=== PATIENT | female | born 1950 | race Caucasian/White ===

== ENCOUNTER 2023-09-24 19:16 | Inpatient (IN) | payer MEDICARE, SELFPAY ==
[2023-09-24] VITALS (20 sets, daily range): BP systolic 109–148; BP diastolic 71–114; BMI 40.6; BMI 39.9
[2023-09-24 16:06] LABS: % Basophils 0.4 % (0-2); % Immature Granulocytes 0.9 % (0-0.5); % Lymphocytes 6.3 % (20.5-51.1); % Monocytes 6.6 % (1.7-9.3); % Neutrophils 85.8 % (42.2-75.2); Absolute Basophils 0.1 10^3/uL (0-0.2); Absolute Immature Granulocytes 0.1 10^3/uL (0-0.05); Hematocrit 46.4 % (37.0-47.0); Mean Corp Hgb Conc. 34.5 g/dL (33.0-37.0); Mean Corpuscular Hgb 32.1 pg (27.0-31.0); Mean Platelet Volume 10.1 fL (7.4-10.4); Nucleated Red Blood Cells % 0 %; Platelet Count 316 10^3/uL (130-400); Red Blood Cell Count 4.99 10^6/uL (4.20-5.40); Red Cell Dist. Width 14.7 % (11.5-14.5); White Blood Cell Count 15.1 10^3/uL (4.8-10.8)
--- NOTE | 2023-09-24 16:10 | ED.GENMED ---
History of Present Illness
General
Chief Complaint: Breathing Problem
Source: patient
Exam Limitations: none
Time Seen by Provider: 09/24/23 16:09
Nursing documentation reviewed up to this point in time: agreed with
Travel History
Have you had any contact with someone who has COVID-19?: No
Do you have any symptoms of coronavirus? Fever > 100 degrees, chills, cough, shortness of breath, sore throat, loss of taste or smell, muscle aches, or headache?: No
History of Present Illness
History of Present Illness:
73-year-old female with history of COPD, A-fib on Eliquis, HTN, CHF, anxiety/depression presents stating last night she became suddenly short of breath. Sometime during the night when she got out of bed to go the bathroom she had shortness of
breath, wheezing, was sweating and felt lightheaded. She denies chest pain.
She is adamant about and does not want cardioversion. She states because she has had 3 cardioversions
She was on dofetilide 100 mg twice daily since June, she converted to NSR and last week her egg breaker Dr. Tripp at [facility] decreased her dofetilide to 50 mg twice daily. She has a follow-up appointment in 3 days with her egg breaker.
Past History
Past History
ED Past Medical History: Arrthythmia (A-fib on Eliquis), COPD, HTN and Psychiatric (Anxiety/depression)
ED Past Surgical History: Cardiac (Cardiac cath 10/27/2022 borderline LV wall motion with visually estimated EF 45 to 50%. Mild pulmonary hypertension)
Social History
Tobacco: Former smoker
Alcohol: None
Personal: Single
Living: alone
Review of Systems
Review of Systems
Allergies reviewed?: Yes
All Other Systems: ROS reviewed and negative except as documented in HPI and ROS
Constitutional: Reports fatigue; Denies fever
Respiratory: Reports trouble breathing; Denies cough
Cardiac: Denies chest pain
ABD/GI: Denies abdominal pain, nausea, vomiting or diarrhea
: Denies dysuria or difficulty voiding
Musculoskeletal: Reports other (Chronic pain post fracture distal left fibula 10/08/2022); Denies edema
Skin: Reports no symptoms
Neurological: Reports no symptoms
Phy Exam
Physical Exam
Physical Exam:
GENERAL: No acute distress. A&Ox3.
CONSTITUTIONAL: Afebrile.
EYES: PERRL, conjunctivae normal
Neck: Supple
ENMT: moist mucus membranes, Pharynx nl
RESPIRATORY: Regular respirations, nonlabored, lungs with scattered expiratory wheezes.
CARDIOVASCULAR: Regular rate and rhythm, no murmurs, no rubs.
GI: Soft, nontender, normal BS
MUSCULOSKELETAL: Moves with ease. Well perfused.
SKIN: Warm, dry, pink
PSYCH: Normal mood and affect. Well kept, interactive and appropriate
NEUROLOGIC: Awake, alert and oriented. No focal neurological deficits
Scores
Heart Failure Risk
Heart Failure Risk Score: Yes
History of Stroke or TIA: No
History of intubation for respiratory distress: No
Heart rate on ED arrival >/= 110: Yes
SaO2 <90% on arrival on room air: No
HR >/=110 during 3min walk test (or too ill to perform test): Yes
ECG has acute ischemic changes: No
Urea >/=12mmol/L (BUN 33.6mg/dL): No
Serum CO2>/=35mmol/L: No
Troponin I or T elevated to ND Level (0.4mg/dL): No
NT-proBNP >/=5,000ng/L (5,000pg/ml): No
HF Risk Score: 2
Admission Status: MEDIUM RISK 9.2% Consider observation or discharge to home with homecare & f/u visit to PCP/Workers Compensation Claims Specialist, or SNF for treatment
Course
Orders/Labs/Results
Orders:
Orders
09/24/23 Dinner
Cholesterol Lowering
Cholesterol Lowering: Sodium, 2 Gram
09/24/23 15:12
EKG [Electrocardiogram (*1)] Urgent
Reason for Study: Shortness of Breath
EKG- Treatment ONCE
09/24/23 15:39
Cardiac Monitoring- Treatment ONCE
IV Insert/Care/Rem.- Treatment PRN
09/24/23 15:52
Pro-BNP [NT-proBNP] Urgent
Troponin I Urgent
09/24/23 15:56
Complete Blood Count/With Diff Urgent
Comprehensive Metabolic Panel Urgent
09/24/23 16:11
COVID-19 Antigen Urgent
Source: Nasal Swab
Influenza A+B Rapid Molecular Urgent
JOSE Source: Nasal Swab
Specimen Description:
09/24/23 16:12
0.9% Sodium Chloride 1000 ml [Nss] 1,000 ml IV BOLUS
09/24/23 16:27
Diltiazem 125 mg/125 ml Nss [Cardizem] 125 mg in 125 ml .ROUTE .STK-MED
Diltiazem HCl [Cardizem] 25 mg .ROUTE .STK-MED ONE
Ipratropium/Albuterol Sulfate [Duoneb] 3 ml .ROUTE .STK-MED ONE
09/24/23 16:28
Ipratropium/Albuterol Sulfate [Duoneb] 3 ml INH R NOW ONE
09/24/23 16:29
Diltiazem 125 mg/125 ml Nss [Cardizem] 125 mg in 125 ml IV NOW
Initial dose in mg/hr, then titrate:: 5
Titrate to keep:: Heart rate 80-100 bpm
Titrate by mg/hr:: 5 mg/hr
Frequency of titrations (minutes):: 15
Maximum dose in mg/hr:: 15
Diltiazem HCl [Cardizem] 10 mg IV NOW STA
Diltiazem HCl [Cardizem] 10 mg IV NOW STA
Ipratropium/Albuterol Sulfate [Duoneb] 3 ml INH R NOW ONE
09/24/23 17:11
Diltiazem HCl [Cardizem] 10 mg IV NOW STA
09/24/23 17:12
Acetaminophen [Tylenol] 1,000 mg PO NOW STA
09/24/23 17:13
CR Chest - 2 Views Urgent
Comment:
Reason For Exam: SOB, WHEEZING
09/24/23 17:55
Admit/Transfer Patient As Directed
Co-Sign Provider:
Level of Care: Inpatient admission
Assign to:: IVU
Physician / Group: Hospitalist
Diagnosis: Rapid Afib, SOB
Reason for Hospitalization: Rapid Afib, SOB
Expected length of stay greater than two midnights?: Yes
ELOS- Estimated Length of Stay in days: 2
I certify the patient meets the requirements for IP care: Yes
09/24/23 17:57
Code Status As Directed
Resuscitation Status: Limited DNR
Limited DNR: -No intubation
09/24/23 20:32
Troponin I Q6H
Acetaminophen [Tylenol] 650 mg PO QIDPRN PRN
Apixaban [Eliquis] 5 mg PO BID
Clonazepam [Klonopin] 1 mg PO BID
Diltiazem 125 mg/125 ml Nss [Cardizem] 125 mg in 125 ml IV PER PROTOCOL
Initial dose in mg/hr, then titrate:: 5
Titrate to keep:: Heart rate 80-100 bpm
Titrate by mg/hr:: 5 mg/hr
Frequency of titrations (minutes):: 15
Maximum dose in mg/hr:: 15
Dofetilide [Tikosyn] 250 mcg PO BID
Doxycycline [Vibramycin] 100 mg PO Q12
Levalbuterol [Xopenex 1.25 mg Inhalant Solution] 1.25 mg INH R Q6HPRN PRN
Montelukast Sodium [Singulair] 10 mg PO QPM
09/24/23 20:32
Respiratory Culture/Gram Stain Routine
JOSE Source: Sputum
Specimen Description:
Activity As Directed
Activity Level: Bedrest for limited time
Bedrest duration in hours then activity as indicated above:: 24
Old Records Request [Obtain Records] As Directed
Dates of Information to be Released: last
Type of Information Requested: Last Office Visit H&P
ECG/Cardiology Results
Comment: Derek Jensen
Vital Signs As Directed
Frequency: Per unit guidelines
Xopenex Reason for Use As Directed
Reason for ordering Xopenex instead of Albuterol: tachy
O2 Therapy [RESP] Routine
Titrate/Wean O2 to maintain O2 sat greater than (%): 92
09/24/23 22:00
Dexamethasone Sod Phosphate [Decadron] 4 mg IV Q8H
Temazepam [Restoril] 30 mg PO HS
09/25/23 02:32
Troponin I Q6H
09/25/23 06:00
Basic Metabolic Panel IN AM
Complete Blood Count/No Diff IN AM
Magnesium IN AM
TSH IN AM
Vitamin B12 IN AM
OT Consult [Ot Eval And Treat] IN AM
PT Consult [Pt Eval And Treat] IN AM
Activity Level: Encourage Progressive Amb
09/25/23 08:00
Ascorbic Acid [Vitamin C] 500 mg PO DAILY
Budesonide/Formoterol 160/4.5 [Symbicort 160/4.5 Mcg Inhaler] 2 puff INH R BID
Calcium Carbonate [Oscal Fabián 500] 500 mg PO DAILY
Cholecalciferol (Vitamin D3) [VITAMIN D3 (cholecalciferol)] 25 mcg PO DAILY
Multivitamin [Theragran] 1 tablet PO DAILY
Pantoprazole [Protonix] 40 mg PO DAILY
Tiotropium Gunpowder 2.5 Mcg [Spiriva Respimat 2.5 Mcg] 2 puff INH R DAILY
Venlafaxine Extended Release [Effexor Xr] 150 mg PO DAILY
Vit C/Vit E/Lutein/Min/[place]mage-3 [Ocuvite Softgel] 1 cap PO DAILY
09/25/23 08:32
Troponin I Q6H
Abnormal Lab Results
09/24/23
15:56
WBC 15.1 H 10^3/uL
(4.8-10.8)
MCH 32.1 H pg
(27.0-31.0)
RDW 14.7 H %
(11.5-14.5)
Abs Immat Gran (auto) 0.1 H 10^3/uL
(0-0.05)
Absolute Neuts (auto) 13.0 H 10^3/uL
(1.4-6.5)
Absolute Lymphs (auto) 1.0 L 10^3/uL
(1.2-3.4)
Absolute Monos (auto) 1.0 H 10^3/uL
(0.1-0.6)
Immature Gran % 0.9 H %
(0-0.5)
Neutrophils % 85.8 H %
(42.2-75.2)
Lymphocytes % 6.3 L %
(20.5-51.1)
Glucose 103 H mg/dl
(70-99)
09/24/23 15:56
09/24/23 15:56
Vital Signs
Initial and Last Documented VS:
Initial Vital Signs
Temp Pulse Resp BP Pulse Ox
99.4 F 106 28 128/92 89
09/24/23 15:01 09/24/23 15:01 09/24/23 15:01 09/24/23 15:01 09/24/23 15:01
Last Documented Vital Signs
Temp Pulse Resp BP Pulse Ox
97.4 F 148 22 129/112 96
09/24/23 20:07 09/24/23 20:00 09/24/23 20:07 09/24/23 19:53 09/24/23 20:07
MDM/Problems Addressed
Differential Diagnosis Includes:
Exacerbation COPD, CHF, ND
MDM/Problems Addressed:
73-year-old female with history of COPD, A-fib on Eliquis, HTN, CHF, anxiety/depression presents stating last night she became suddenly short of breath. Sometime during the night when she got out of bed to go the bathroom she had shortness of
breath, wheezing, was sweating and felt lightheaded. She denies chest pain.
She is adamant about and does not want cardioversion. She states because she has had 3 cardioversions
She was on dofetilide 100 mg twice daily since June, she converted to NSR and last week her egg breaker Dr. Tripp at [facility] decreased her dofetilide to 50 mg twice daily. She has a follow-up appointment in 3 days with her egg breaker.
On Eliquis, doubt PE
Afebrile
EKG: A-fib with RVR
Patient is NOT want to be defibrillated. She is okay with Cardizem drip.
09/24/2023 1632 PM
Negative flu
CBC: WBC 15.1
CMP: Normal
Troponin: Normal
09/24/2023 1716 PM
Patient heart rate still in the 140s, Cardizem 10 mg bolus repeated, is on Cardizem drip
Continues to refuse cardioversion. BP stable
Hospitalist notified of admission
BNP:pending
CXR pending
Chronic conditions affecting care: HTN, Arrhythmia (A-fib on Eliquis) and Other (Chronic pulmonary hypertension)
*EKG
EKG Intrepretation Date: 09/24/23
Interpretation: abnormal
Rate: tachycardiac
Rhythm: a-fib
[place]: normal axis
QRS Pattern: normal QRS
Ischemia: ST depression
*Critical Care Note
Total Time (30-74mins, 75-104mins- exclusive of procedures): Not Applicable
ED Attending Note
-
Portions of this chart may have been created with voice recognition software.� Occasional wrong word or��sound alike� substitutions may have occurred due to the inherent limitations of voice recognition software.
Discharge Plan
Departure
Patient Disposition: Admit
Date of Disposition: 09/24/23
Time of Disposition: 17:11
Admit to: IMU
Presentation/result/management discussed w/ accepting MD/DO: Hospitalist
Condition: Fair
Discharge Problem:
Atrial fibrillation with RVR
Interventions
Interventions:
*Risk Screen - Suicide Last Done: 09/24/23 16:02
*General Assessment Last Done: 09/24/23 16:02
*Neglect/Abuse Screening Last Done: 09/24/23 16:02
ED- Fall Risk Assessment Last Done: 09/24/23 16:02
*ED COVID-19 Vaccine History Last Done: 09/24/23 16:02
*Nursing Disposition Last Done: 09/24/23 19:52
ED- Cardiac Assessment Last Done: 09/24/23 16:42
ED- Pulmonary Assessment Last Done: 09/24/23 16:42
Discharge Date and Time
Discharge Date/Time: 09/24/23 19:52
[2023-09-24 16:19] LABS: ALT (SGPT) 22 U/L (0-35); AST (SGOT) 23 U/L (14-36); Albumin 4.3 g/dl (3.5-5.0); Alkaline Phosphatase 115 U/L (38-126); Blood Urea Nitrogen 17 mg/dl (7-17); Calcium 9.5 mg/dl (8.4-10.2); Carbon Dioxide 23 mmol/L (22-30); Chloride 105 mmol/L (98-107); Estimated Creatinine Clearance 95 ml/min; Glucose 103 mg/dl (70-99); Potassium 3.8 mmol/L (3.5-5.1); Sodium 138 mmol/L (135-145); Total Bilirubin 0.7 mg/dl (0.2-1.3); Total Protein 7.3 g/dl (6.3-8.2); eGFR > 60.00
[2023-09-24] MEDS: CARDIZEM 10 MG IV ×2 (16:29→17:16)
[2023-09-24] MEDS: DUONEB 3 ML INH (16:29)
[2023-09-24] MEDS: CARDIZEM 125 IV ×2 (16:32→22:58)
[2023-09-24 16:34] LABS: COVID-19 Antigen Negative (Negative)
[2023-09-24 16:58] LABS: Troponin I 0.012 ng/ml
[2023-09-24 17:16] LABS: NT-proBNP 596 pg/ml
[2023-09-24] MEDS: TYLENOL 1000 MG PO (17:16)
--- NOTE | 2023-09-24 17:28 | HPS.HSE ---
Family Physician
-
Family Physician: EUSEBIA Machuca
Chief Complaint
-
Shortness of breath
History of Present Illness
73-year-old female became short of breath suddenly she also felt lightheadedness. Patient has a history of A-fib and has had 3 cardioversions in the past. She was on dofetilide 500 mcg twice daily since June converted to sinus rhythm. Saw
Isaias Grayson at [facility] who decreased her dofetilide to 250 mcg twice daily and has a follow-up coming up in 3 days. Patient stated that she recently had a fall 2 days ago and saw orthopedics Dr. Hal Mendez at [facility]. And did not have any further
recommendations. She felt short of breath last night and a friend made her come to the hospital. Instead of going to [facility] they brought her to [facility].
Medical History
Past Medical History
Past Medical History: Reports Other
Additional Past Medical History:
, Impaired vision and left eye, anxiety and depression ,atrial fibrillation, asthma, COPD, hypertension, arthritis
Past Surgical History: Reports Other
Additional Past Surgical History:
Left tibial fracture surgery
Social History
Tobacco: Former Smoker
Alcohol: None
Drug: None
Personal: Single
Living: Alone
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
Family History
Family History: CAD (Mother)
Allergies / Home Medications
Allergies reflects when Allergies were last updated in [facility].
Home Medications with original date entered in [facility]
Allergy/Medication List:
Allergies
Allergy/AdvReac Type Severity Reaction Status Date / Time
No Known Allergies Allergy Verified 09/24/23 15:08
Home Medications
apixaban 5 mg tablet (Eliquis) 5 mg PO BID 10/27/22
clonazepam 1 mg tablet 1 mg PO BID 10/27/22
diltiazem HCl 120 mg capsule,extended release 24 hr 120 mg PO BID 10/27/22
fluticasone furoate 200 mcg-vilanterol 25 mcg/dose inhalation powder (Breo Ellipta) 1 inh inhalation R DAILY 10/27/22
montelukast 10 mg tablet 10 mg PO QPM 10/27/22
pantoprazole 40 mg tablet,delayed release 40 mg PO DAILY 10/27/22
umeclidinium 62.5 mcg/actuation blister powder for inhalation (Incruse Ellipta) 1 inh inhalation R DAILY 10/27/22
venlafaxine 150 mg capsule,extended release 24 hr 150 mg PO DAILY 10/27/22
acetaminophen 325 mg tablet (Tylenol) 650 mg PO QIDPRN PRN mild pain 09/24/23
ascorbic acid (vitamin C) 500 mg tablet (Vitamin C) 500 mg PO DAILY 09/24/23
calcium carbonate 500 mg calcium (1,250 mg) tablet 500 mg PO DAILY 09/24/23
cholecalciferol (vitamin D3) 25 mcg (1,000 unit) tablet (Vitamin D3) 25 mcg PO DAILY 09/24/23
dofetilide 250 mcg capsule 250 mcg PO BID 09/24/23
temazepam 30 mg capsule 30 mg PO HS 09/24/23
therapeutic multivitamin 1 tab PO DAILY 09/24/23
vitamin E 268 mg (400 unit) capsule 268 mg PO DAILY 09/24/23
vitamins A,C,O-crcx-lxeqju 2,148 mcg-113 mg-45 mg-17.4 mg tablet (PreserVision AREDS) 1 tab PO DAILY 09/24/23
Review of Systems
-
A 12 point ROS was completed and negative except as noted: Yes
Respiratory: Reports Trouble Breathing
Cardiac: Reports Chest Pain (Once last night)
Musculoskeletal: Reports Joint Pain (Left knee after the fall )
Physical Exam
Vital Signs
Vital Signs
Temp Pulse Resp BP Pulse Ox
99.4 F 142 24 121/71 98
09/24/23 15:01 09/24/23 17:01 09/24/23 17:01 09/24/23 17:01 09/24/23 17:00
Physical Exam
General: Conversant and Respiratory Distress (Mild)
Respiratory: Rales and Rhonchi
Cardiac: S1/S2, Irregular Rhythm and Tachycardia
GI: Soft, Non Tender and Normal Bowel Sounds
Neuro: AO x 3 and Nonfocal/grossly intact
Psych: Intact Judgment/Insight
Laboratory Results
-
09/24/23 15:56
09/24/23 15:56
Laboratory Results
Total Bilirubin 0.7 mg/dl (0.2-1.3) 09/24/23 15:56
AST 23 U/L (14-36) 09/24/23 15:56
ALT 22 U/L (0-35) 09/24/23 15:56
Alkaline Phosphatase 115 U/L (38-126) 09/24/23 15:56
Troponin I 0.012 ng/ml 09/24/23 15:52
Data Reviewed
-
Medical Tests (Nuc Med, Echo, EKG etc): Image Personally Visualized and interpreted (EKG reviewed by me-atrial fibrillation with rapid ventricular response. ST-T changes lateral [place]. ST depressions in the lateral leads. T wave inversion in the
lateral leads.)
Impression/Plan
-
Cardiac catheterization 10/27/2022-elevated filling pressures with mild pulmonary hypertension. Significantly resting hypoxemia. No significant coronary disease
IMPRESSION/PLAN:
# Atrial fibrillation with rapid ventricular rate
Admit to telemetry
Patient does not want another cardioversion
Possibly secondary to recently reducing dofetilide dose to 250 mcg recently
Rate control with diltiazem drip
Continue Eliquis
Rule out ischemia with troponins
Cardiology evaluation
# Fall 2 days ago with pain in the left knee
Saw Dr. Hal Mendez today in the office had x-rays done and no further recommendations.
Pain control
# Wheezing-likely COPD exacerbation
Chest x-ray
Decadron 4 mg IV every 8 hours
Sputum culture
Start doxycycline
Oxygen
# Acute hypoxic respiratory insufficiency likely secondary to above. Also rule out CHF. X-rays pending.
COVID and FLU neg
# Asthma/COPD
Continue Incruse Ellipta, Singulair, Breo Ellipta
# Anxiety and depression
continue temazepam, venlafaxine, Klonopin
# Hypertension-continue Cardizem
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
# Obesity
# DVT prophylaxis-Eliquis
# CODE STATUS-DNI
[2023-09-24] MEDS: KLONOPIN 1 MG PO (21:55)
[2023-09-24] MEDS: SINGULAIR 10 MG PO (21:55)
[2023-09-24] MEDS: TIKOSYN 250 MCG PO (21:55)
[2023-09-24] MEDS: VIBRAMYCIN 100 MG PO (21:56)
[2023-09-24] MEDS: RESTORIL 30 MG PO (21:56)
[2023-09-24] MEDS: DECADRON 4 MG IV (21:56)
[2023-09-24] MEDS: ELIQUIS 5 MG PO (21:57)
[2023-09-24 22:00] LABS: Troponin I 0.016 ng/ml
[2023-09-24] MEDS: TYLENOL 650 MG PO (22:57)
[2023-09-25] VITALS (32 sets, daily range): BP systolic 87–151; BP diastolic 45–113; PULSE 98–103; O2SAT 91–92
--- NOTE | 2023-09-25 02:12 | PTCARENOTE ---
Late note:Received from the ED at 1999. Cardizem drip infusing at 15ml/hr. Remains in a-fib in the low 100's at present. Sleeping at this time. Took Tylenol at 2257 for left hip and leg pain, patient stated she is still recovering from tib/fib fx
repair done last year.
[2023-09-25 03:34] LABS: Hematocrit 40.6 % (37.0-47.0); Hemoglobin 14.1 g/dL (12.0-16.0); Mean Corp Hgb Conc. 34.7 g/dL (33.0-37.0); Mean Corpuscular Hgb 32.6 pg (27.0-31.0); Mean Corpuscular Volume 93.8 fL (81.0-99.0); Mean Platelet Volume 10.9 fL (7.4-10.4); Platelet Count 264 10^3/uL (130-400); Red Blood Cell Count 4.33 10^6/uL (4.20-5.40); Red Cell Dist. Width 14.5 % (11.5-14.5); White Blood Cell Count 11.1 10^3/uL (4.8-10.8)
[2023-09-25 03:56] LABS: Blood Urea Nitrogen 21 mg/dl (7-17); Calcium 8.8 mg/dl (8.4-10.2); Carbon Dioxide 22 mmol/L (22-30); Chloride 108 mmol/L (98-107); Estimated Creatinine Clearance 94 ml/min; Glucose 139 mg/dl (70-99); Potassium 4.1 mmol/L (3.5-5.1); Sodium 137 mmol/L (135-145); eGFR > 60.00
[2023-09-25 04:04] LABS: Troponin I 0.015 ng/ml
[2023-09-25 04:27] LABS: TSH 0.62 uIU/ml (0.47-4.68)
[2023-09-25 04:46] LABS: Vitamin B12 471 pg/ml (239-931)
[2023-09-25] MEDS: DECADRON 4 MG IV ×2 (06:14→14:30)
[2023-09-25] MEDS: FLUSH (NSS) 2 FLUSH IV (06:15)
[2023-09-25] MEDS: CARDIZEM 125 IV ×2 (07:01→15:46)
--- NOTE | 2023-09-25 07:40 | W.PN.HOSP.TC ---
Today's Communication/Plan
-
steroid taper
tikosyn cardizem as per Cardio
possible cardioversion Wednesday
Assessment / Plan
Assessment / Plan
Physical Exam
General: Conversant No acute distress appears comfortable at this time
Respiratory: Rales and Rhonchi
Cardiac: S1/S2, Irregular Rhythm and Tachycardia
GI: Soft, Non Tender and Normal Bowel Sounds
Neuro: AO x 3 and Nonfocal/grossly intact
Psych: Intact Judgment/Insight
HPI: 73-year-old female became short of breath suddenly she also felt lightheadedness.� Patient has a history of A-fib and has had 3 cardioversions in the past.� She was on dofetilide 500 mcg twice daily since June converted to sinus rhythm.�
Saw Dr. Greene at [place] who decreased her dofetilide to 250 mcg twice daily and has a follow-up coming up in 3 days.� Patient stated that she recently had a fall 2 days ago and saw orthopedics Dr. Hal Mendez at [place].� And did not have any
further recommendations.� She felt short of breath last night and a friend made her come to the hospital.� Instead of going to [facility] they brought her to [place].
Cardiac catheterization 10/27/2022-elevated filling pressures with mild pulmonary hypertension.� Significantly resting hypoxemia.� No significant coronary disease
IMPRESSION/PLAN:
# Atrial fibrillation with rapid ventricular rate
Admit to telemetry
Possibly secondary to recently reducing dofetilide dose to 250 mcg recently
Rate control with diltiazem drip
Continue Eliquis
Negative troponins
Cardiology evaluation appreciated tikosyn increased, possible cardioversion wednesday
# Fall 2 days ago with pain in the left knee
Saw Dr. Hal Mendez today in the office had x-rays done and no further recommendations.
Pain control
# Wheezing-likely COPD exacerbation
Chest x-ray
Decadron 4 mg IV every 8 hours tapered to Q12
Sputum culture
Cont doxycycline
Oxygen
# Acute hypoxic respiratory insufficiency likely secondary to above.
COVID and FLU neg
Mild bibasilar airspace disease may reflect atelectasis and/or pneumonia (less likely pna)
# Asthma/COPD
Continue Incruse Ellipta, Singulair, Breo Ellipta
# Anxiety and depression
continue temazepam, venlafaxine, Klonopin
# Hypertension-continue Cardizem
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
# Obesity
# DVT prophylaxis-Eliquis
# CODE STATUS-DNI
I spent a total of 55 minutes with the patient or on the floor. More than 50% of this time involved counseling and coordination of care.
Anticipated Discharge: > 48 hours
Subjective/Interval History
-
Date of Service: September 25, 2023
No acute distress sitting up comfortably in chair. Reports resolution shortness of breath at rest and palpitations though patient remains tachy on telemonitor. Denies new acute issues at this time.
Objective Data
-
Labs:
Laboratory Results
09/25/23
03:16
WBC 11.1 H
Hgb 14.1
Hct 40.6
Plt Count 264
Sodium 137
Potassium 4.1
Chloride 108 H
Carbon Dioxide 22
BUN 21 H
Creatinine 0.6
Glucose 139 H
Calcium 8.8
Vital Signs:
Vital Signs
Temp Pulse Resp BP Pulse Ox
97.9 F 109 20 107/87 92
09/25/23 03:38 09/25/23 06:00 09/25/23 03:38 09/25/23 06:00 09/25/23 03:38
I&O
09/24/23 09/25/23 09/26/23
06:59 06:59 06:59
Output Total 400 / 400
Balance -400 / -400
--- NOTE | 2023-09-25 08:08 | CON.CAR ---
Addendum entered and electronically signed by Boyd Arreola MD 09/25/23 09:47:
Patient seen and examined in collaboration with AUDITOR; agree with below.
-73-year-old female with medical/cardiac history as outlined below presenting with recurrent atrial fibrillation with RVR; also appears to have a COPD exacerbation.
-Management of COPD exacerbation as per primary team.
-Will increase dofetilide back to 500 mcg twice daily.
-Continue Cardizem drip for now.
-Continue wafer cutter.
-If patient remains in A-fib on Wednesday; will plan for DCCVN Wednesday morning--she has not missed any doses of Eliquis over the past month.
Original Note:
Consultation
Consultation Request
Date/Time Consultation Requested: 09/24/23 18:00
Date/Time Consultation Performed: 09/25/23 08:00
Requesting Provider: Dr. Degroot
Performing Provider: EUSEBIA Hubbard for Dr. Arreola
Reason for Consultation: Atrial fibrillation with rapid ventricular response
Medical History
-
Chief Complaint: Shortness of breath
History of Present Illness:
Mckenzie Farah is a 73-year-old female (known to Dr. Greene, her primary butcher) with paroxysmal atrial fibrillation (on apixaban and dofetilide), COPD, hypertension, arthritis, and anxiety who presented to the emergency department with
shortness of breath. She reports associated lightheadedness. She was on dofetilide 500 mcg twice daily and was in sinus rhythm. She had follow-up with her primary butcher and her dofetilide was decreased due to borderline QTc in the setting
of temazepam use. The patient would prefer to find another agent to assist in her sleep and resume her dofetilide at prior dosing.
Past Medical History
Past Medical History: Arrhythmias (Paroxysmal atrial fibrillation [on apixaban]), COPD, HTN and Psychiatric (Anxiety)
Past Surgical History: Orthopedic
Social History
Personal: Single
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
Family History
Family History: Reviewed & Not Pertinent
Allergies / Home Medications
Allergy/AdvReac Type Severity Reaction Status Date / Time
No Known Allergies Allergy Verified 09/24/23 15:08
Medication Instructions Recorded Confirmed Type
apixaban 5 mg tablet (Eliquis) 5 mg PO BID 10/27/22 09/24/23 History
clonazepam 1 mg tablet 1 mg PO BID 10/27/22 09/24/23 History
diltiazem HCl 120 mg 120 mg PO BID 10/27/22 09/24/23 History
capsule,extended release 24 hr
fluticasone furoate 200 1 inh inhalation R DAILY 10/27/22 09/24/23 History
mcg-vilanterol 25 mcg/dose
inhalation powder (Breo Ellipta)
montelukast 10 mg tablet 10 mg PO QPM 10/27/22 09/24/23 History
pantoprazole 40 mg tablet,delayed 40 mg PO DAILY 10/27/22 09/24/23 History
release
umeclidinium 62.5 mcg/actuation 1 inh inhalation R DAILY 10/27/22 09/24/23 History
blister powder for inhalation
(Incruse Ellipta)
venlafaxine 150 mg 150 mg PO DAILY 10/27/22 09/24/23 History
capsule,extended release 24 hr
acetaminophen 325 mg tablet 650 mg PO QIDPRN PRN mild pain 09/24/23 09/24/23 History
(Tylenol)
ascorbic acid (vitamin C) 500 mg 500 mg PO DAILY 09/24/23 09/24/23 History
tablet (Vitamin C)
calcium carbonate 500 mg calcium 500 mg PO DAILY 09/24/23 09/24/23 History
(1,250 mg) tablet
cholecalciferol (vitamin D3) 25 25 mcg PO DAILY 09/24/23 09/24/23 History
mcg (1,000 unit) tablet (Vitamin
D3)
dofetilide 250 mcg capsule 250 mcg PO BID 09/24/23 09/24/23 History
temazepam 30 mg capsule 30 mg PO HS 09/24/23 09/24/23 History
therapeutic multivitamin 1 tab PO DAILY 09/24/23 09/24/23 History
vitamin E 268 mg (400 unit) capsule 268 mg PO DAILY 09/24/23 09/24/23 History
vitamins A,C,G-iuqv-wxlzib 2,148 1 tab PO DAILY 09/24/23 09/24/23 History
mcg-113 mg-45 mg-17.4 mg tablet
(PreserVision AREDS)
Review of Systems
-
History Source: Patient
All other systems: Negative unless noted
Constitutional: No Symptoms
Respiratory: Trouble Breathing
Cardiac: Palpitations
Abdomen/GI: No Symptoms
Physical Exam
Vital Signs
Temp Pulse Resp BP Pulse Ox
97.9 F 109 20 107/87 92
09/25/23 03:38 09/25/23 06:00 09/25/23 03:38 09/25/23 06:00 09/25/23 03:38
Lab Results
09/25/23 03:16
09/25/23 03:16
Troponin I 0.015 ng/ml 09/25/23 03:16
Mfv-J-Lgwcjvftesk Pept 596 pg/ml 09/24/23 15:52
Physical Exam
General: Well Developed, Well Nourished and No Apparent Distress
HEENT: Normocephalic and Anicteric
Respiratory: Wheezes (Expiratory)
Cardiac: S1/S2 and Irregular Rhythm
Breast: Deferred by me
GI: Soft, Non Tender, Non Distended and Normal Bowel Sounds
Rectal: Deferred by Provider
Genito-urinary: No Costovertebral Tender
Musculoskeletal: No Clubbing, No Cyanosis and No Edema
Skin: Warm and Dry
Hematologic/Lymphatic: No Lymphadenopathy
Psych: Calm
Impression / Plan
-
Atrial fibrillation with rapid ventricular response
-Rate inadequately controlled on diltiazem at 15 mg/hour
-Avoiding beta-arabella therapy given active wheeze
-Oral Anticoagulation: Apixaban 5 mg twice daily, she denies missed doses and abnormal bleeding
-[id number]: Score 3 (HTN, age 65-74, female gender)
-Increase dofetilide from 250mcg to 500 mcg Q12, this requires intensive monitoring of QTc
-EKG per protocol
COPD, acute exacerbation with expiratory wheeze, on intravenous steroids and doxycycline, per primary
Mechanical fall with left knee pain, per primary
Hypertension, stable, follow with changes in medical therapy
Anxiety, chronic, stable
Data Reviewed
-
EKG: Report Reviewed by me (Atrial fibrillation with biventricular response, lateral T wave abnormality, rate 159)
Radiology: Report Reviewed by me (CXR: Mild bibasilar airspace disease may reflect atelectasis and/or pneumonia.)
Medical Tests (Nuc Med, Echo etc): Report Reviewed by me (Cardiac catheterization as above)
Labs: Labs Reviewed by me
Old Records: Reviewed
[2023-09-25] MEDS: SPIRIVA RESPIMAT 2.5 MCG 2 PUFF INH (08:21)
[2023-09-25] MEDS: SYMBICORT 160/4.5 MCG INHALER 2 PUFF INH ×2 (08:21→18:12)
--- NOTE | 2023-09-25 08:25 | W.CARD.TIKOS ---
Addendum entered and electronically signed by Boyd Arreola MD 09/25/23 09:39:
Agree with below.
Original Note:
Initiate Tikosyn
-
I verify that the patient has not taken any verapamil (Isoptin/Calan), ketoconazole (Nizoral), cimetidine (Tagamet), trimethoprim (Trimpex), trimethoprim/sulfamethoxazole (Bactrim), megesterol (Megace), prochlorperazine (Compazine),
hydrochlorothiazide (HCTZ), dolutegravir (Tivicay) or any Class I or Class III anti-arrhythmic within the last three days
AND
I verify that the patient has not taken amiodarone within the last THREE months, or that the patient's amiodarone plasma concentration is <0.3 mcg/mL.
Creatinine 0.6 mg/dL (0.6-1.0) 09/25/23 03:16
Estimated Creat Clear 94 ml/min 09/25/23 03:16
I have assessed the baseline QTc interval (using QT for heart rate less than 60 bpm) and deemed the patient is appropriate for Dofetilide therapy. I understand that Tikosyn is contraindicated if the QTc is >440msec (500msec in patients with
ventricular conduction abnormalities).
Baseline QTc (in msec): 445
QTc interval is greater than 440msec without conduction abnormality OR greater than 500msec with a conduction abnormality, but acceptable to proceed per Cardiology attending.
Reason for Administration with Prolonged QTc: Other Atrial Arrhythmia
Ordering Physician: Boyd Arreola
[2023-09-25] MEDS: THERAGRAN 1 TABLET PO (09:10)
[2023-09-25] MEDS: VIBRAMYCIN 100 MG PO ×2 (09:10→20:06)
[2023-09-25] MEDS: OSCAL CAL 500 500 MG PO (09:10)
[2023-09-25] MEDS: VITAMIN D3 (cholecalciferol) 25 MCG PO (09:10)
[2023-09-25] MEDS: PROTONIX 40 MG PO (09:10)
[2023-09-25] MEDS: ELIQUIS 5 MG PO ×2 (09:10→20:07)
[2023-09-25] MEDS: KLONOPIN 1 MG PO ×2 (09:11→20:07)
[2023-09-25] MEDS: VITAMIN C 500 MG PO (09:11)
[2023-09-25] MEDS: OCUVITE SOFTGEL 1 CAP PO (09:11)
[2023-09-25] MEDS: EFFEXOR XR 150 MG PO (09:13)
[2023-09-25] MEDS: TIKOSYN 500 MCG PO ×2 (09:16→21:14)
[2023-09-25 09:43] LABS: Troponin I < 0.012 ng/ml
[2023-09-25] MEDS: TIKOSYN PO (10:21)
[2023-09-25] MEDS: TYLENOL 650 MG PO ×2 (12:28→20:07)
[2023-09-25] MEDS: SINGULAIR 10 MG PO (17:30)
[2023-09-25] MEDS: XANAX 0.25 MG PO (21:52)
--- NOTE | 2023-09-25 22:09 | PTCARENOTE ---
pt very anxious and agitated.pt requesting Restoril for sleep. restoril on hold from cardiology. pt angry that she wasn't told they were doing this. pt threatening to leave hospital. pt allowed to ventilate feelings and concerns. support provided
frequently.pt on tikosyn. qTC explained to pt in detail. spoke with cardiac pa,ed. xanax ordered for anxiety.pt refusing bp cuff at this time. will monitor bp as needed. pt assisted with repositioning for comfort. tylenol given earlier for left
hip/leg pain. pt states that has improved. will observe frequently.
--- NOTE | 2023-09-25 23:30 | PTCARENOTE ---
ekg done. pt remains afib. rXr=[id number]. support provided frequently.
[2023-09-26] MEDS: CARDIZEM 125 IV ×2 (00:11→09:34)
[2023-09-26 03:14] VITALS: BP 120/72
[2023-09-26] MEDS: DECADRON 4 MG IV ×2 (03:22→15:00)
[2023-09-26 04:15] LABS: Hematocrit 37.2 % (37.0-47.0); Hemoglobin 13.4 g/dL (12.0-16.0); Mean Corpuscular Hgb 33.2 pg (27.0-31.0); Mean Corpuscular Volume 92.1 fL (81.0-99.0); Mean Platelet Volume 10.4 fL (7.4-10.4); Platelet Count 267 10^3/uL (130-400); Red Blood Cell Count 4.04 10^6/uL (4.20-5.40); White Blood Cell Count 12.8 10^3/uL (4.8-10.8)
[2023-09-26 04:38] LABS: Blood Urea Nitrogen 26 mg/dl (7-17); Calcium 9.7 mg/dl (8.4-10.2); Carbon Dioxide 24 mmol/L (22-30); Chloride 105 mmol/L (98-107); Estimated Creatinine Clearance 94 ml/min; Glucose 140 mg/dl (70-99); Phosphorus 3.7 mg/dl (2.5-4.5); Potassium 4.1 mmol/L (3.5-5.1); Sodium 138 mmol/L (135-145); eGFR > 60.00
--- NOTE | 2023-09-26 04:42 | PTCARENOTE ---
pt noted to now be in nsr. pt sleeping.
--- NOTE | 2023-09-26 05:58 | PTCARENOTE ---
pt assisted oob to bedside commode. pt voided dark yellow urine. pt back to bed. pt remains nsr with pvc,s on monitor.
[2023-09-26 07:12] VITALS: BP 135/62
--- NOTE | 2023-09-26 07:51 | W.PN.HOSP.TC ---
Today's Communication/Plan
-
steroids bronchodilators
wean O2 supplementation as tolerated
cardizem tikosyn as per cardio
xanax prn switched to ativan d/t concern interaction with cardizem
Assessment / Plan
Assessment / Plan
Physical Exam
General: Conversant No acute distress appears comfortable at this time
Respiratory: Rales and Rhonchi
Cardiac: S1/S2, Irregular Rhythm and Tachycardia
GI: Soft, Non Tender and Normal Bowel Sounds
Neuro: AO x 3 and Nonfocal/grossly intact
Psych: Intact Judgment/Insight
HPI: 73-year-old female became short of breath suddenly she also felt lightheadedness.� Patient has a history of A-fib and has had 3 cardioversions in the past.� She was on dofetilide 500 mcg twice daily since June converted to sinus rhythm.�
Saw Dr. Greene at [place] who decreased her dofetilide to 250 mcg twice daily and has a follow-up coming up in 3 days.� Patient stated that she recently had a fall 2 days ago and saw orthopedics Dr. Hal Mendez at [place].� And did not have any
further recommendations.� She felt short of breath last night and a friend made her come to the hospital.� Instead of going to [place] they brought her to [place].
Cardiac catheterization 10/27/2022-elevated filling pressures with mild pulmonary hypertension.� Significantly resting hypoxemia.� No significant coronary disease
IMPRESSION/PLAN:
# Atrial fibrillation with rapid ventricular rate
Possibly secondary to recently reducing dofetilide dose to 250 mcg recently
Continue Eliquis
Negative troponins
Afib spontaneously converted back to NSR
Cardiology evaluation appreciated tikosyn increased but later reduced again due to QT prolongation, Cardizem gtt converted to PO, home metoprolol discontinued possible BB exacerbating COPD
# Fall 2 days ago with pain in the left knee
Saw Dr. Hal Mendez in office had x-rays done and no further recommendations.
Pain control
# Wheezing-likely COPD exacerbation
# Acute hypoxic respiratory insufficiency
# Asthma/COPD
Continue Incruse Ellipta, Singulair, Breo Ellipta
COVID and FLU neg
Chest x-ray appreciated Mild bibasilar airspace disease may reflect atelectasis and/or pneumonia.
Decadron 4 mg IV every 8 hours tapered to Q12 then to prednisone 40 mg daily
Sputum culture preliminary usual respiratory francis
Cont doxycycline
Oxygen
# Anxiety and depression
#Insomnia
continue venlafaxine, Klonopin
home temazepam bedtime discontinued due to concern interaction with tikosyn, initially replaced with prn xanax, d/t concern interaction with cardizem, xanax discontinued in favor of prn ativan
# Hypertension-continue Cardizem
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
# Obesity
# DVT prophylaxis-Eliquis
# CODE STATUS-DNI
I spent a total of 55 minutes with the patient or on the floor. More than 50% of this time involved counseling and coordination of care.
Anticipated Discharge: 24 - 48 hours
Subjective/Interval History
-
Date of Service: September 26, 2023
No acute distress, appears comfortable at this time.
Objective Data
-
Labs:
Laboratory Results
09/26/23
03:21
WBC 12.8 H
Hgb 13.4
Hct 37.2
Plt Count 267
Sodium 138
Potassium 4.1
Chloride 105
Carbon Dioxide 24
BUN 26 H
Creatinine 0.6
Glucose 140 H
Calcium 9.7
Vital Signs:
Vital Signs
Temp Pulse Resp BP Pulse Ox
98.1 F 76 20 135/62 93
09/26/23 07:06 09/26/23 07:12 09/26/23 07:06 09/26/23 07:12 09/26/23 07:06
I&O
09/25/23 09/26/23 09/27/23
06:59 06:59 06:59
Output Total 400 / 400 700 / 700
Balance -400 / -400 -700 / -700
--- NOTE | 2023-09-26 08:00 | PTCARENOTE ---
pt received from previous RN, oriented, in bed. SR w/ PVCs/PACs on the monitor, HR 70-80s. SBP 130s. pt on 2LNC, 93% POX. lungs coarse, expiratory wheeze. 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 Acapella encouraged. pt abdomen s/n, denies n/v. diet
tolerated well. PIV. Cardizem gtt running as ordered. see worklist for VS, I&O, and assessment.
[2023-09-26] MEDS: TYLENOL 650 MG PO ×2 (08:10→20:30)
[2023-09-26] MEDS: VITAMIN D3 (cholecalciferol) 25 MCG PO (08:10)
[2023-09-26] MEDS: OCUVITE SOFTGEL 1 CAP PO (08:10)
[2023-09-26] MEDS: THERAGRAN 1 TABLET PO (08:11)
[2023-09-26] MEDS: ELIQUIS 5 MG PO ×2 (08:11→20:30)
[2023-09-26] MEDS: VIBRAMYCIN 100 MG PO ×2 (08:11→20:30)
[2023-09-26] MEDS: KLONOPIN 1 MG PO ×2 (08:11→20:29)
[2023-09-26] MEDS: OSCAL CAL 500 500 MG PO (08:11)
[2023-09-26] MEDS: PROTONIX 40 MG PO (08:11)
[2023-09-26] MEDS: VITAMIN C 500 MG PO (08:11)
[2023-09-26] MEDS: EFFEXOR XR 150 MG PO (08:11)
[2023-09-26] MEDS: SYMBICORT 160/4.5 MCG INHALER 2 PUFF INH ×2 (08:28→21:01)
[2023-09-26] MEDS: SPIRIVA RESPIMAT 2.5 MCG 2 PUFF INH (08:28)
[2023-09-26] MEDS: TIKOSYN 500 MCG PO (09:04)
[2023-09-26 11:02] VITALS: BP 121/68
--- NOTE | 2023-09-26 11:30 | PTCARENOTE ---
pt VSS, EKG completed, Dr. Arreola aware of QTc.
--- NOTE | 2023-09-26 14:48 | W.PN.CD ---
Today's Communication / Plan
-
-Patient back in sinus rhythm, but has QTc prolongation (538 ms) on increased dose of Tikosyn 500 mcg twice daily.
-Will decrease Tikosyn back down to 250 mcg twice daily.
-Will place on Cardizem CD 240 mg twice daily; will discontinue Cardizem drip.
-Will not reinitiate Toprol-XL (patient was taking 50 mg TID at home) due to COPD exacerbation with active wheezing.
-EKG post-Tikosyn EKGs as per protocol.
-Patient to be evaluated by EP Cardiology tomorrow.
Impression / Plan
-
Atrial fibrillation with rapid ventricular response
-Patient back in sinus rhythm, but has QTc prolongation (538 ms) on increased dose of Tikosyn 500 mcg twice daily.
-Will decrease Tikosyn back down to 250 mcg twice daily.
-Will place on Cardizem CD 240 mg twice daily; will discontinue Cardizem drip.
-Will not reinitiate Toprol-XL (patient was taking 50 mg TID at home) due to COPD exacerbation with active wheezing.
-Oral Anticoagulation: Apixaban 5 mg twice daily, she denies missed doses and abnormal bleeding
-[id number]: Score 3 (HTN, age 65-74, female gender)
-EKG post-Tikosyn EKGs as per protocol.
-Patient to be evaluated by EP Cardiology tomorrow.
COPD, acute exacerbation with expiratory wheeze, on intravenous steroids and doxycycline
-Management as per primary team.
Mechanical fall with left knee pain, per primary
Hypertension, stable, follow with changes in medical therapy
Anxiety, chronic, stable
Physical Exam
Vital Signs/Labs
Vital Signs
Temp Pulse Resp BP Pulse Ox
97.4 F 78 20 121/68 92
09/26/23 11:10 09/26/23 14:00 09/26/23 11:10 09/26/23 11:02 09/26/23 11:10
09/25/23 09/26/23 09/27/23
06:59 06:59 06:59
Actual Weight 98.8 kg
09/26/23 03:21
09/26/23 03:21
Magnesium 2.0 mg/dl (1.6-2.3) 09/26/23 03:21
TSH 0.62 uIU/ml (0.47-4.68) 09/25/23 03:16
09/24/23
15:52
Azt-G-Gzxcebtzydh Pept 596
LAB Results
09/24/23 09/24/23 09/25/23
15:52 21:31 03:16
Troponin I 0.012 0.016 D 0.015
09/25/23
09:09
Troponin I < 0.012
Physical Exam
Constitutional: No acute distress and Comfortable
EENT: Anicteric
Cardiovascular: Rhythm & rate is regular, Pedal edema is absent, Systolic murmur absent and S1S2 is normal
Respiratory: Respiratory effort normal and Wheeze Present (Expiratory)
GI: Soft
Neuro/Psych: AO x 3
Other: Skin (Warm, dry, intact)
Data Reviewed
-
Date of Service: September 26, 2023
EKG: Tracing Personally Visualized and interpreted (EKG: AF --> SR)
Medical Tests (PFT, Pathology etc): Discussed with Nurse
Labs: Labs Reviewed by me
[2023-09-26] MEDS: CARDIZEM CD 240 MG PO ×2 (15:00→20:30)
[2023-09-26 15:04] VITALS: BP 134/66
[2023-09-26] MEDS: SINGULAIR 10 MG PO (17:36)
[2023-09-26 20:07] VITALS: BP 123/73
[2023-09-26] MEDS: TIKOSYN 250 MCG PO (21:00)
[2023-09-26] MEDS: ATIVAN 0.5 MG PO (21:00)
[2023-09-26 23:13] VITALS: BP 138/67
[2023-09-27] MEDS: DECADRON 4 MG IV (02:55)
[2023-09-27 03:01] VITALS: BP 132/62
[2023-09-27 03:17] VITALS: BMI 39.7
--- NOTE | 2023-09-27 03:22 | PTCARENOTE ---
Patient received 250 mcg of Tikosyn, ekg obtained 2hrs post. QTc level 495, and rhythm shows SR w/ occasional PACs. Patient denies any chest pain. Sating 93% on 2L of O2, patient states she does not require O2 at home. 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 She
requires standby assist to BSC, and denies any dizziness. Voiding tarun color urine w/out difficulty. Patient aware to remain NPO until further notice from Mortician Investigator for a ?EP eval. Call mayo within reach.
[2023-09-27 03:52] LABS: Hematocrit 36.1 % (37.0-47.0); Mean Corpuscular Hgb 33.4 pg (27.0-31.0); Mean Corpuscular Volume 92.8 fL (81.0-99.0); Mean Platelet Volume 10.4 fL (7.4-10.4); Platelet Count 274 10^3/uL (130-400); Red Blood Cell Count 3.89 10^6/uL (4.20-5.40); Red Cell Dist. Width 14.1 % (11.5-14.5)
[2023-09-27 04:16] LABS: Blood Urea Nitrogen 30 mg/dl (7-17); Calcium 8.9 mg/dl (8.4-10.2); Carbon Dioxide 22 mmol/L (22-30); Chloride 108 mmol/L (98-107); Estimated Creatinine Clearance 94 ml/min; Glucose 120 mg/dl (70-99); Magnesium 1.9 mg/dl (1.6-2.3); Phosphorus 3.9 mg/dl (2.5-4.5); Potassium 4.1 mmol/L (3.5-5.1); Sodium 136 mmol/L (135-145); eGFR > 60.00
--- NOTE | 2023-09-27 07:02 | W.PN.HOSP.TC ---
Today's Communication/Plan
-
Needs complete home oxygen assessment (saturation at rest, with ambulation, amount oxygen needed if desaturating with ambulation)
cont cardiac medications as per cardio
steroid taper
wean O2 as tolerated
discharge planning home with home services
Assessment / Plan
Assessment / Plan
Physical Exam
General: Conversant No acute distress appears comfortable at this time
Respiratory: Rales and Rhonchi
Cardiac: S1/S2, Irregular Rhythm and Tachycardia
GI: Soft, Non Tender and Normal Bowel Sounds
Neuro: AO x 3 and Nonfocal/grossly intact
Psych: Intact Judgment/Insight
HPI: 73-year-old female became short of breath suddenly she also felt lightheadedness.� Patient has a history of A-fib and has had 3 cardioversions in the past.� She was on dofetilide 500 mcg twice daily since June converted to sinus rhythm.�
Saw Dr. Greene at [place] who decreased her dofetilide to 250 mcg twice daily and has a follow-up coming up in 3 days.� Patient stated that she recently had a fall 2 days ago and saw orthopedics Dr. Hal Mendez at [place].� And did not have any
further recommendations.� She felt short of breath last night and a friend made her come to the hospital.� Instead of going to [place] they brought her to [place].
Cardiac catheterization 10/27/2022-elevated filling pressures with mild pulmonary hypertension.� Significantly resting hypoxemia.� No significant coronary disease
IMPRESSION/PLAN:
# Atrial fibrillation with rapid ventricular rate
Possibly secondary to recently reducing dofetilide dose to 250 mcg recently
Continue Eliquis
Negative troponins
Afib spontaneously converted back to NSR
Cardiology evaluation appreciated tikosyn increased but later reduced again due to QT prolongation, Cardizem gtt converted to PO, home metoprolol discontinued possible BB exacerbating COPD
# Fall 2 days ago with pain in the left knee
Saw Dr. Hal Mendez in office had x-rays done and no further recommendations.
Pain control
# Wheezing-likely COPD exacerbation
# Acute hypoxic respiratory insufficiency
# Asthma/COPD
Continue Incruse Ellipta, Singulair, Breo Ellipta
COVID and FLU neg
Chest x-ray appreciated Mild bibasilar airspace disease may reflect atelectasis and/or pneumonia.
Decadron 4 mg IV every 8 hours tapered to Q12 then to prednisone 40 mg daily, short taper reduce by 10 mg every 2 days
Sputum culture preliminary usual respiratory francis
Cont doxycycline
wean Oxygen as tolerated
Needs home oxygen assessment prior to discharge
# Anxiety and depression
#Insomnia
continue venlafaxine, Klonopin
home temazepam bedtime discontinued due to concern interaction with tikosyn, initially replaced with prn xanax, d/t concern interaction with cardizem, xanax discontinued in favor of prn ativan, patient tolerating well
# Hypertension-continue Cardizem
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
# Obesity
# DVT prophylaxis-Eliquis
# CODE STATUS-DNI
I spent a total of 55 minutes with the patient or on the floor. More than 50% of this time involved counseling and coordination of care.
Anticipated Discharge: Within 24 hours
Subjective/Interval History
-
Date of Service: September 27, 2023
No acute distress reports overall feeling well denies any new acute issues at this time. Slept well overnight with prn ativan
Objective Data
-
Labs:
Laboratory Results
09/27/23
03:08
WBC 17.0 H
Hgb 13.0
Hct 36.1 L
Plt Count 274
Sodium 136
Potassium 4.1
Chloride 108 H
Carbon Dioxide 22
BUN 30 H
Creatinine 0.6
Glucose 120 H
Calcium 8.9
Vital Signs:
Vital Signs
Temp Pulse Resp BP Pulse Ox
97.7 F 71 22 132/62 93
09/27/23 03:01 09/27/23 03:01 09/27/23 03:01 09/27/23 03:01 09/27/23 03:01
I&O
09/26/23 09/27/23 09/28/23
06:59 06:59 06:59
Intake Total 70 / 70
Output Total 700 / 700 1000 / 1000
Balance -700 / -700 -930 / -930
[2023-09-27 07:40] VITALS: BP 130/70
[2023-09-27] MEDS: SPIRIVA RESPIMAT 2.5 MCG 2 PUFF INH (07:49)
[2023-09-27] MEDS: SYMBICORT 160/4.5 MCG INHALER 2 PUFF INH ×2 (07:49→20:54)
[2023-09-27] MEDS: THERAGRAN 1 TABLET PO (08:32)
[2023-09-27] MEDS: TIKOSYN 250 MCG PO ×2 (08:32→21:23)
[2023-09-27] MEDS: ELIQUIS 5 MG PO ×2 (08:33→19:36)
[2023-09-27] MEDS: VITAMIN C 500 MG PO (08:33)
[2023-09-27] MEDS: VIBRAMYCIN 100 MG PO ×2 (08:33→19:36)
[2023-09-27] MEDS: EFFEXOR XR 150 MG PO (08:33)
[2023-09-27] MEDS: OSCAL CAL 500 500 MG PO (08:33)
[2023-09-27] MEDS: OCUVITE SOFTGEL 1 CAP PO (08:33)
[2023-09-27] MEDS: KLONOPIN 1 MG PO ×2 (08:33→19:36)
[2023-09-27] MEDS: PROTONIX 40 MG PO (08:33)
[2023-09-27] MEDS: DELTASONE 40 MG PO (08:33)
[2023-09-27] MEDS: VITAMIN D3 (cholecalciferol) 25 MCG PO (08:33)
[2023-09-27] MEDS: CARDIZEM CD 240 MG PO ×2 (08:33→19:35)
[2023-09-27 09:57] VITALS: PULSE 71; O2SAT 91
[2023-09-27] MEDS: TYLENOL 650 MG PO ×2 (10:03→17:07)
--- NOTE | 2023-09-27 11:47 | CM ---
Chart reviewed. Patient is independent of ADLS, lives alone in an apartment, elevator access, patient has a wheelchair, walker, SPC, commode and a shower seat. 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 She has aides that come
into the house to assist with her care. Patient is not current with VN and is not currently interest. Patient does have Dofetilide 250 mcq available at home. Plan is for the patient to return home. CM to follow
--- NOTE | 2023-09-27 12:08 | W.PN.CD ---
Today's Communication / Plan
-
- Stable from Cardiac stand point for discharge
Impression / Plan
-
Atrial fibrillation with rapid ventricular response
-Patient back in sinus rhythm, but has QTc prolongation (538 ms) on increased dose of Tikosyn 500 mcg twice daily.
-Tikosyn is now at 250 mcg twice daily. - QTc is acceptable.
-Continue Cardizem CD 240 mg twice daily; off Cardizem drip.
-Will not reinitiate Toprol-XL (patient was taking 50 mg TID at home) due to COPD exacerbation with active wheezing.
-Oral Anticoagulation: Apixaban 5 mg twice daily, she denies missed doses and abnormal bleeding
-[id number]: Score 3 (HTN, age 65-74, female gender)
-s/p Tiosyn loaded now with 250 mcg BID dose.
-Pt is interested in ablation.
-Appointment with EP in 1-2 weeks to discuss ablation.
COPD,
-acute exacerbation with expiratory wheeze, on intravenous steroids and doxycycline
-Management as per primary team.
Mechanical fall with left knee pain, per primary
Hypertension, stable, follow with changes in medical therapy
Anxiety, chronic, stable
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 Greene @ [facility].
Physical Exam
Vital Signs/Labs
Vital Signs
Temp Pulse Resp BP Pulse Ox
97.3 F 60 16 130/70 94
09/27/23 07:50 09/27/23 08:33 09/27/23 07:53 09/27/23 08:33 09/27/23 07:50
09/26/23 09/27/23 09/28/23
06:59 06:59 06:59
Actual Weight 98.3 kg
09/27/23 03:08
09/27/23 03:08
Magnesium 1.9 mg/dl (1.6-2.3) 02/05/24 03:08
TSH 0.62 uIU/ml (0.47-4.68) 09/25/23 03:16
09/24/23
15:52
Wvr-O-Nyqvuvowtue Pept 596
LAB Results
09/24/23 09/24/23 09/25/23
15:52 21:31 03:16
Troponin I 0.012 0.016 D 0.015
09/25/23
09:09
Troponin I < 0.012
Physical Exam
Constitutional: No acute distress and Comfortable
EENT: Anicteric and Moist mucous membranes
Cardiovascular: Rhythm & rate is regular, Pedal edema is absent, JVD present and Systolic murmur present
Respiratory: Respiratory effort normal and Rhonchi Present
GI: Soft, Distention absent, Non tender and Normal bowel sounds
Neuro/Psych: Alert, Oriented and AO x 3
Data Reviewed
-
Date of Service: September 27, 2023
Medical Decision Making: Reviewed Test Results, Independent Historian Assessment, Test Interpretation and Review of Case with other Provider
EKG: Tracing Personally Visualized and interpreted
Echo: Report Reviewed by me
Labs: Labs Reviewed by me
Old Records: Reviewed
[2023-09-27 16:51] VITALS: BP 124/53
[2023-09-27] MEDS: SINGULAIR 10 MG PO (17:07)
--- NOTE | 2023-09-27 17:57 | PTCARENOTE ---
Home O2 assessment completed. Pt was 93% on RA.
[2023-09-27 19:22] VITALS: BP 133/53
[2023-09-27] MEDS: ATIVAN 0.5 MG PO ×2 (21:23→22:41)
[2023-09-27 22:35] VITALS: BP 140/65
[2023-09-28] MEDS: TYLENOL 650 MG PO ×2 (02:04→09:46)
[2023-09-28 02:05] VITALS: BP 131/71
[2023-09-28 02:30] LABS: Hematocrit 38.2 % (37.0-47.0); Hemoglobin 13.4 g/dL (12.0-16.0); Mean Corp Hgb Conc. 35.1 g/dL (33.0-37.0); Mean Corpuscular Hgb 32.8 pg (27.0-31.0); Mean Corpuscular Volume 93.6 fL (81.0-99.0); Platelet Count 262 10^3/uL (130-400); Red Blood Cell Count 4.08 10^6/uL (4.20-5.40); Red Cell Dist. Width 13.8 % (11.5-14.5); White Blood Cell Count 16.7 10^3/uL (4.8-10.8)
[2023-09-28 02:54] LABS: Blood Urea Nitrogen 34 mg/dl (7-17); Calcium 8.7 mg/dl (8.4-10.2); Carbon Dioxide 23 mmol/L (22-30); Chloride 107 mmol/L (98-107); Estimated Creatinine Clearance 81 ml/min; Glucose 108 mg/dl (70-99); Magnesium 1.9 mg/dl (1.6-2.3); Phosphorus 3.6 mg/dl (2.5-4.5); Potassium 4.1 mmol/L (3.5-5.1); Sodium 136 mmol/L (135-145); eGFR > 60.00
[2023-09-28 06:59] VITALS: BP 121/67
--- NOTE | 2023-09-28 07:07 | W.PN.HOSP.TC ---
Addendum entered and electronically signed by Darshan Ortiz MD 09/28/23 16:47:
Possible sepsis POA d/t pna vs physiologic response COPD exacerbation
Original Note:
Today's Communication/Plan
-
discharge
Assessment / Plan
Assessment / Plan
Physical Exam
General: Conversant No acute distress appears comfortable at this time
Respiratory: Rhonchi
Cardiac: S1/S2 NSR
GI: Soft, Non Tender and Normal Bowel Sounds
Neuro: AO x 3 and Nonfocal/grossly intact
Psych: Intact Judgment/Insight
HPI: 73-year-old female became short of breath suddenly she also felt lightheadedness.� Patient has a history of A-fib and has had 3 cardioversions in the past.� She was on dofetilide 500 mcg twice daily since June converted to sinus rhythm.�
Saw Dr. Greene at [facility] who decreased her dofetilide to 250 mcg twice daily and has a follow-up coming up in 3 days.� Patient stated that she recently had a fall 2 days ago and saw orthopedics Dr. Hal Mendez at [facility].� And did not have any
further recommendations.� She felt short of breath last night and a friend made her come to the hospital.� Instead of going to [place] they brought her to [place].
Cardiac catheterization 10/27/2022-elevated filling pressures with mild pulmonary hypertension.� Significantly resting hypoxemia.� No significant coronary disease
IMPRESSION/PLAN:
# Atrial fibrillation with rapid ventricular rate
Possibly secondary to recently reducing dofetilide dose to 250 mcg recently
Continue Eliquis
Negative troponins
Afib spontaneously converted back to NSR
Cardiology evaluation appreciated tikosyn increased but later reduced again due to QT prolongation, Cardizem gtt converted to PO, home metoprolol discontinued possible BB exacerbating COPD
# Fall 2 days ago with pain in the left knee
Saw Dr. Hal Mendez in office had x-rays done and no further recommendations.
Pain control
# Wheezing-likely COPD exacerbation
# Acute hypoxic respiratory insufficiency
# Asthma/COPD
Continue Incruse Ellipta, Singulair, Breo Ellipta
COVID and FLU neg
Chest x-ray appreciated Mild bibasilar airspace disease may reflect atelectasis and/or pneumonia.
Decadron 4 mg IV every 8 hours tapered to Q12 then to prednisone 40 mg daily, short taper reduce by 10 mg every 2 days
Sputum culture preliminary usual respiratory francis
Cont doxycycline total 5 days regimen planned
weaned off oxygen supplementation saturating well on room air no desaturation noted on ambulation
# Anxiety and depression
#Insomnia
continue venlafaxine, Klonopin
home temazepam bedtime discontinued due to concern interaction with tikosyn, initially replaced with prn xanax, d/t concern interaction with cardizem, xanax discontinued in favor of prn ativan, patient tolerating well
# Hypertension-continue Cardizem
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
# Obesity
# DVT prophylaxis-Eliquis
# CODE STATUS-DNI
Medically stable for discharge home with outpatient follow up recommendations.
Total Time Preparing Discharge ___50____ minutes including examination of the patient, summary of the hospital stay, instructions for continuing care to all relevant caregivers; and preparation of discharge records, prescriptions, and referral
forms if necessary.
Anticipated Discharge: Today
Subjective/Interval History
-
Date of Service: September 28, 2023
no acute distress able to ambulate with assist device without issues. Denies any new acute issues at this time. Eager to go home
Objective Data
-
Labs:
Laboratory Results
09/28/23
02:22
WBC 16.7 H
Hgb 13.4
Hct 38.2
Plt Count 262
Sodium 136
Potassium 4.1
Chloride 107
Carbon Dioxide 23
BUN 34 H
Creatinine 0.7
Glucose 108 H
Calcium 8.7
Vital Signs:
Vital Signs
Temp Pulse Resp BP Pulse Ox
97.3 F 57 18 131/71 95
09/28/23 06:57 09/28/23 06:57 09/28/23 06:57 09/28/23 02:05 09/28/23 06:57
I&O
09/27/23 09/28/23 09/29/23
06:59 06:59 06:59
Intake Total 70 / 70
Output Total 1000 / 1000 1100 / 1100
Balance -930 / -930 -1100 / -1100
[2023-09-28] MEDS: SPIRIVA RESPIMAT 2.5 MCG 2 PUFF INH (08:07)
[2023-09-28] MEDS: SYMBICORT 160/4.5 MCG INHALER 2 PUFF INH (08:07)
[2023-09-28] MEDS: VITAMIN D3 (cholecalciferol) 25 MCG PO (09:03)
[2023-09-28] MEDS: VIBRAMYCIN 100 MG PO (09:03)
[2023-09-28] MEDS: KLONOPIN 1 MG PO (09:04)
[2023-09-28] MEDS: OSCAL CAL 500 500 MG PO (09:04)
[2023-09-28] MEDS: TIKOSYN 250 MCG PO (09:04)
[2023-09-28] MEDS: OCUVITE SOFTGEL 1 CAP PO (09:04)
[2023-09-28] MEDS: CARDIZEM CD 240 MG PO (09:04)
[2023-09-28] MEDS: EFFEXOR XR 150 MG PO (09:04)
[2023-09-28] MEDS: PROTONIX 40 MG PO (09:04)
[2023-09-28] MEDS: THERAGRAN 1 TABLET PO (09:04)
[2023-09-28] MEDS: ELIQUIS 5 MG PO (09:05)
[2023-09-28] MEDS: VITAMIN C 500 MG PO (09:05)
[2023-09-28] MEDS: DELTASONE 40 MG PO (09:05)
[2023-09-28 11:17] VITALS: BP 138/76
--- NOTE | 2023-09-28 11:20 | CM ---
Chart reviewed. Patient is lying in bed with RA saturation of 93%. PT recommending Home PT, patient is refusing. Patient is independent of ADLS, lives alone in an apartment with an elevator access. Currently she is using a wheelchair because she
reinjured her Tibia/Fibula fracture. Nigel has 2 walker, SPC, commode and shower chair in the home. Patient uses an [employer] [facility] [employer]. She has aides that come out to the home to assist the patient with care. The
plan is for the patient to return home. CM to follow
--- NOTE | 2023-09-28 11:44 | W.DCSUMMARY ---
Discharge Summary
Discharge Data
Date of Admission: 09/24/23
Date of Discharge: 09/28/23
-
Pending Results: No
Hospital Course
73-year-old female became short of breath suddenly she also felt lightheadedness.� Patient has a history of A-fib and has had 3 cardioversions in the past.� She was on dofetilide 500 mcg twice daily since June converted to sinus rhythm.� Saw
Isaias Grayson at [facility] who decreased her dofetilide to 250 mcg twice daily and has a follow-up coming up in 3 days.� Patient stated that she recently had a fall 2 days ago and saw orthopedics Dr. Hal Mendez at [facility] who did not have any further
recommendations.� She felt short of breath last night and a friend made her come to the hospital. Atrial fibrillation with rapid ventricular rate possibly secondary to recently reduced dofetilide dose to 250 mcg recently. Negative troponins.
Eventually Afib spontaneously converted back to NSR. Tikosyn increase was later reduced again due to QT prolongation, Cardizem gtt converted to PO, home metoprolol discontinued given concern possible BB exacerbating COPD. Wheezing-likely COPD
exacerbation, Acute hypoxic respiratory insufficiency, Continued Incruse Ellipta, Singulair, Breo Ellipta. COVID and FLU neg. Chest x-ray appreciated Mild bibasilar airspace disease reflective atelectasis and/or pneumonia. Decadron 4 mg IV every
8 hours tapered to Q12 then to prednisone 40 mg daily, short taper reduce by 10 mg every 2 days recommended on discharge. Sputum culture preliminary usual respiratory francis. Continued doxycycline total 5 days regimen planned. Prior to discharge
patient was weaned off oxygen supplementation saturating well on room air, no desaturation noted on ambulation. Home temazepam bedtime was discontinued due to concern interaction with tikosyn, initially replaced with prn xanax,� d/t concern
interaction with cardizem, xanax discontinued in favor of prn ativan, patient tolerated well. Medically stabilized, patient was discharged home with outpatient follow up recommendations.
Discharge Plan
-
Patient Disposition: Home (Routine Discharge)
Discharge Diagnosis/Procedures: Atrial Fibrillation Rapid Ventricular Rate, COPD exacerbation, Pneumonia, Anxiety Depression Insomnia, Hypertension, Obesity
Condition: Fair
Diet: Low Cholesterol
Activity: As tolerated and With Walker
Driving Restrictions: Not until seen by your Dr
Blood Work: Please repeat CBC with primary care provider in 1 week of discharge to follow up leukocytosis likely due to steroids at this time.
Stop these medications:: Metoprolol has been discontinued due to concern exacerbating COPD.
Temazepam has been discontinued due to concern interaction with Tikosyn. Temazepam has been substituted with Ativan as needed.
Please follow up with primary care provider cardiology or other healthcare provider involved in your care before considering to resume above medications.
Activity Restrictions/Additional Instructions:
Please follow up with your primary care provider in 1 week of discharge and cardiology in 1-2 weeks of discharge.
Doxycycline 2 more doses have been prescribed to complete your antibiotic regimen for pneumonia.
Doxycycline Precautions
Take with at least 6 oz H2O
Take with food but no calcium containing products like milk or cheese
Ideally you would not take any multivitamins, calcium, magnesium or zinc containing products.
If you must take one of these products make sure that the pills are by at least 3 hours.
Sit up for at least 30 minutes after each dose to prevent heartburn.
Your skin will be more sensitive to the sun while you are on doxycycline - it will be very easy for you to get a sunburn.
short Prednisone taper has been prescribed for COPD exacerbation:
30 mg daily x2 days, then 20 mg daily x2 days, then 10 mg daily x2 days. then stop
Cardizem has been increased to 240 mg twice a day for rate control atrial fibrillation
Ativan 0.5 mg at bedtime as needed has been prescribed for insomnia. Ok to use an additional dose if no effect 1 hour after initial dose.
Please take medications as prescribed/recommended and follow up with your primary care provider and/or other healthcare provider involved in your care for refills and/or further adjustments to your medication regimen as necessary.
Instructions: Atrial Fibrillation (DC), Chronic Obstructive Pulmonary Disease (COPD) (DC), Community-Acquired Pneumonia, Adult (DC)
Referrals:
Tameka Bean MD [Active] - in one to two weeks
Camacho Greco CRNP [Family Provider] - in one week
Prescriptions:
New
lorazepam 0.5 mg Tablet
0.5 mg PO HSPRN PRN (Reason: sleep) Qty: 45 0RF
Rx Instructions:
ok to take additional 0.5 mg if no significant effect 1 hour after first dose
doxycycline hyclate 100 mg Capsule
100 mg PO Q12 Qty: 2 0RF
diltiazem HCl 240 mg Capsule,Extended Release 24hr
240 mg PO BID 30 Days Qty: 60 0RF
prednisone 10 mg Tablet
See Rx Instructions .ROUTE .COMPLEX Qty: 12 0RF
Rx Instructions:
Take By Mouth:
30 mg daily x2 days, 20 mg daily x2 days,
10 mg daily x2 days then stop
Continued
clonazepam 1 mg Tablet
1 mg PO BID
venlafaxine 150 mg Capsule,Extended Release 24hr
150 mg PO DAILY
pantoprazole 40 mg Tablet,Delayed Release (Dr/Ec)
40 mg PO DAILY
montelukast 10 mg Tablet
10 mg PO QPM
Eliquis 5 mg Tablet
5 mg PO BID
Hold Instructions: Resume on 10/28/22. HOLD post cath- ok to restart on 3 in AM
Incruse Ellipta 62.5 mcg/actuation Blister With Device
1 inh INHALATION R DAILY
fluticasone furoate-vilanterol [Breo Ellipta] 200-25 mcg/dose Blister With Device
1 inh INHALATION R DAILY
acetaminophen [Tylenol] 325 mg Tablet
650 mg PO QIDPRN PRN (Reason: mild pain)
dofetilide 250 mcg Capsule
250 mcg PO BID
therapeutic multivitamin Tablet
1 tab PO DAILY
calcium carbonate 500 mg calcium (1,250 mg) Tablet
500 mg PO DAILY
ascorbic acid (vitamin C) [Vitamin C] 500 mg Tablet
500 mg PO DAILY
vitamin E 268 mg (400 unit) Capsule
268 mg PO DAILY
cholecalciferol (vitamin D3) [Vitamin D3] 25 mcg (1,000 unit) Tablet
25 mcg PO DAILY
PreserVision AREDS 2,148 mcg-113 mg-45 mg-17.4mg Tablet
1 tab PO DAILY
Discontinued
diltiazem HCl 120 mg Capsule,Extended Release 24hr
120 mg PO BID
temazepam 30 mg Capsule
30 mg PO HS
metoprolol tartrate
50 mg PO 3XD
Discharge Orders:
Discharge Patient (As Directed); Ordered 09/28/23
Ordered By: Darshan Ortiz
Care Plan Goals
Care Plan Goals:
Problem: Readiness for enhanced knowledge related to diagnosis and treatment plan
Goal: Understand your diagnosis and treatment plan needs, including medications if applicable.
Instructions: Know your diagnosis, underlying causes and treatment plan options, including medications if applicable. Consult with your health care team to learn about your diagnosis and treatment plan, including medications if applicable.
Discharge Date and Time
Discharge Date/Time: 09/28/23 13:51
--- NOTE | 2023-09-28 12:28 | PN.CDI ---
CDI
- -
CDI:
Physician Documentation Request
Admit Date: 09/24/23 19:16
Dear Doctor Diana,
Please review the following and provide your response in the progress notes.
Clinical Indicators:
- 09/28 PN 'Chest x-ray appreciated Mild bibasilar airspace disease may reflect atelectasis and/or pneumonia'
- 09/28 DC Summary 'Discharge Diagnosis...Pneumonia,...'
- On admission WBC 15.1, HR 100-150's, RR 20's
- Doxycycline started
Please clarify which of the following most accurately describes the status of the patient's infection:
Sepsis due to pneumonia
- Systemic manifestations of infection, with 2 or more SIRS criteria which include:
- Fever >100.4 degrees F or hypothermia < 96.8 degrees F
- Leukocytosis - WBC > 12,000 or leukopenia - WBC < 4,000 or > 10% bands
- Tachycardia > 90 beats per minute
- Tachypnea - RR > 20 breaths per minute or PaCO2 , 32mmHg
Source: Merck Manual 2013
- Indicate the known or suspected organism
- Indicate the known or suspected underlying infection, such as UTI, pneumonia or cellulitis
- Indicate if a suspected bacterial infection of unknown source
- Indicate if associated with an implanted device such as a F/C, PICC line, orthopedic hardware, etc.
Localized Infection Only, pneumonia, Without Systemic Illness
- indicate the site/source, such as UTI, pneumonia etc.
Other
Use of terms such as suspected, likely, concern for, or probable (associated with a specific diagnosis that is being evaluated, monitored, or treated as if it exists) are acceptable and can be coded in the inpatient setting, when documented at the
time of discharge.
Thank you,
Zack Kan RN
CDI Specialist
Please use your independent medical judgment in providing your response.
== END 2023-09-28 13:51 | disposition home or self-care (01) | DRG 871 ==
LOC: IVU 19:16
PROVIDERS: Registered Nurse; ADMITTING PHYSICIAN Hospitalist; ATTENDING PHYSICIAN Internal Medicine; EMERGENCY PHYSICIAN Emergency Medicine; FAMILY PHYSICIAN Nurse Practitioner Family; OTHER PHYSICIAN Nurse Practitioner Gerontology
DX: A41.9 Sepsis, unspecified organism (principal); J18.9 Pneumonia, unspecified organism; J44.1 Chronic obstructive pulmonary disease with (acute) exacerbation; Z68.41 Body mass index [BMI] 40.0-44.9, adult; I48.0 Paroxysmal atrial fibrillation; E66.9 Obesity, unspecified; I27.20 Pulmonary hypertension, unspecified; M25.562 Pain in left knee; I10 Essential (primary) hypertension
CPT/HCPCS: 71046; 80048; 80053; 82607; 83735; 83880; 84100; 84443; 84484; 85025; 85027; 87070; 87205; 87502; 87811; 93005; 94640; 96365; 96366; 97163; 97167; 97530; 97535; 99285